=== PATIENT | male | born 1945 | race Native Hawaiian/Other Pacific Islander ===

== ENCOUNTER 2021-03-10 18:34 | Emergency (ER) | payer OTHER ==
[~2021-03-10] VITALS: Ht 172.7 cm; Wt 56.2 kg
[2021-03-10 19:05] LABS: PLATELET COUNT 179 K/uL (142-355)
[2021-03-10 19:23] LABS: POTASSIUM 3.9 mmol/L (3.6-5.2)
[2021-03-10 20:50] VITALS: BP 110/59; TEMP 98
[2021-03-10] MEDS ORDERED: LIPITOR40 MG PO (22:07)
[2021-03-10] MEDS ORDERED: ASPIRIN81 M1 PO (22:07)
[2021-03-10] MEDS ORDERED: CLOPIDOGREL75 MG PO (22:08)
[2021-03-10] MEDS ORDERED: FURO20TA67 PO (22:08)
[2021-03-10] MEDS ORDERED: INSULIN AS100 UNIT/2 SC (22:11)
[2021-03-10] MEDS ORDERED: METO50TA63 PO (22:15)
[2021-03-10] MEDS ORDERED: BUDE1AER5 INH (22:17)
[2021-03-10] MEDS ORDERED: NITROGLYCERIN0.4 MG SL (22:17)
[2021-03-10] MEDS ORDERED: ALBUTEROL INH (22:21)
[2021-03-10] MEDS ORDERED: ALBUSOL INH (22:29)
== END 2021-03-10 20:50 | disposition other institution (70) ==
LOC: ED 18:34
PROVIDERS: Family Medicine
DX: R46.89 Other symptoms and signs involving appearance and behavior (principal); I50.9 Heart failure, unspecified; Z11.52 Encounter for screening for COVID-19; Z04.6 Encounter for general psychiatric examination, requested by authority
CPT/HCPCS: 36415; 80053; 81000; 85027; 87635; 93005; 99283; U0003